=== PATIENT | female | born 1980 | race Two or more races ===

== ENCOUNTER 2025-02-04 08:35 | Emergency (ER) | payer BC, SELFPAY ==
[2025-02-04 08:42] VITALS: BP 123/86; PULSE 97; RESP 18; TEMP 36.7; O2SAT 97; BMI 33.1
--- NOTE | 2025-02-04 08:55 | XR_ITS ---
Examination: Lumbar spine 3 views Technique: AP lateral coned lateral lower lumbar spine 3 views. Date and time: February 04, 2025 0953 hrs. Indications: Lower back pain today no injury. Findings: Satisfactory alignment lumbar vertebral bodies. No fracture. No spondylolisthesis. No significant lumbar disc narrowing. Impression: No lumbar fracture. No significant lumbar disc narrowing.
--- NOTE | 2025-02-04 08:55 | PD.EDLOWEX ---
Lower Extremity Injury RME/HPI General Chief Complaint: Extremity Injury, Lower Stated Complaint: L HIP PAIN RADIATING DOWN LEG Time Seen by Provider: 02/04/25 08:47 Arrival date/time: 02/04/25 08:35 Limitations: no limitations RME / HPI RME / HPI Narrative: 44-year-old female here for back pain that radiates down her left hip. States about a week ago was doing a twisting motion in the shower and felt something pop. Has never had similar episode of this. No loss of bowel or bladder control. No fever. No history of IV drug use. No history of diabetes. Other than incident 1 week ago no spine trauma. Related Data Previous Rx's ?Medication ?Instructions ?Recorded hydrocodone 5 mg-acetaminophen 325 1 tab PO BID PRN pain 7 days #14 02/04/25 mg tablet tabs prednisone 20 mg tablet 40 mg PO QDAY #10 tabs 02/04/25 Allergies Allergy/AdvReac Type Severity Reaction Status Date / Time No Known Allergies Allergy Unverified 02/04/25 08:56 Review of Systems Review of Systems Systems Reviewed: All systems reviewed, normal except as documented Constitutional Constitutional: Denies fever(s) Gastrointestinal Gastrointestinal: Denies abdominal pain Genitourinary Genitourinary: Denies difficulty voiding Musculoskeletal Musculoskeletal: Reports as per HPI ED Exam General Limitations: Present no limitations General appearance: Present alert and in no apparent distress Eye Eye exam: Present normal appearance, PERRL and EOMI Respiratory Respiratory exam: Present normal lung sounds bilaterally Cardiovascular Cardiovascular exam: Present regular rate, normal rhythm and normal heart sounds Abdominal Exam Abdominal exam: Present soft and normal bowel sounds Extremities Exam Extremities exam: Present normal inspection and full ROM Back Exam Back exam: Present full ROM, tenderness (lumbar ttp ) and sciatic notch tenderness (L) Psychiatric Psychiatric exam: Present normal affect and normal mood Skin Skin exam: Present warm, dry, intact and normal color Course Quality Measures none Orders Category Date Time Status XR lumbar spine 2-3V Stat Exams 02/04/25 08:55 Completed HCG Qualitative,Urine Stat Lab 02/04/25 09:15 Completed UA [Urinalysis] Stat Lab 02/04/25 09:15 Completed Dexamethasone Inj [Decadron Inj] Med 02/04/25 08:55 Discontinued 10 mg PO X1 ONE HYDROcodone*/APAP 5/325 [Wolverine 5/325] Med 02/04/25 08:55 Discontinued 1 tab PO X1 ONE HYDROcodone*/APAP 5/325 [Wolverine 5/325] Med 02/04/25 11:19 Discontinued 1 tab PO X1 ONE Ketorolac Inj [Toradol Inj] Med 02/04/25 08:55 Discontinued 30 mg IM X1 ONE Vital Signs Vital signs: Vital Signs Temperature 98.1 F 02/04/25 08:42 Pulse Rate 97 02/04/25 08:42 Respiratory Rate 18 02/04/25 08:42 Blood Pressure 123/86 H 02/04/25 08:42 Pulse Oximetry (%) 97 02/04/25 08:42 Oxygen Delivery Method Room Air 02/04/25 08:42 Extremity Injury, Lower Patient data External records reviewed:: [facility] previous records and None Clinical information provided by:: patient Social determinants that could affect healthcare access:: other (specify) (Works long hours does not make time to go to PCP) Patient has the following chronic illnesses:: None How is presenting disease/condition affected by chronic disease/condition?: no chronic disease Evaluation data The following diagnostics were reviewed and interpreted by me:: lab results and radiology exam(s) Lab and/or radiology exams considered but not ordered:: CT of spine was considered however unlikely to change the course of treatment Interpretation Summary: UA within normal limits x-ray within normal limits other than some mild arthritic changes Medications / Prescriptions Medications or Prescriptions considered but not ordered:: Muscle relaxers are considered however due due to concern of grogginess opted against Medication administrations:: Medication Administration History Discontinued Medications Hydrocodone Bitart/Acetaminophen (Hydrocodone/Apap 5/325 Tablet) 1 tab PO X1 ONE Stop: 02/04/25 08:56 Last Admin: 02/04/25 09:24 Dose: Not Given Documented By: KELL Non-Admin Reason: Patient Refused Hydrocodone Bitart/Acetaminophen (Hydrocodone/Apap 5/325 Tablet) 1 tab PO X1 ONE Stop: 02/04/25 11:20 Last Admin: 02/04/25 11:26 Dose: 1 tab Documented By: KELL Dexamethasone Sodium Phosphate (Dexamethasone Sod Phos Inj 10 Mg/Ml Vial) 10 mg PO X1 ONE Stop: 02/04/25 08:56 Last Admin: 02/04/25 09:23 Dose: 10 mg Documented By: KELL Ketorolac Tromethamine (Ketorolac Inj 60 Mg/2 Ml Vial) 30 mg IM X1 ONE Stop: 02/04/25 08:56 Last Admin: 02/04/25 09:23 Dose: 30 mg Documented By: KELL See above Consultations Consultation(s) initiated? (list below): No Diagnosis Extremity Injury, Lower Differential Diagnosis: ankle sprain and strain, acute internal derangement of knee and other (Sciatica, infection) Most likely diagnosis given after review of the tests above:: New onset sciatica left-sided Admission Indicated Admission indicated?: not indicated Admission Request Was there a request for admission?: No Disposition Plan Disposition Plan: Discharge Discharge Attestation Discharge Attestation: The patient and all family members were given an opportunity to ask questions and understood the discharge instructions. Discharge instructions specifically effects, indications for sooner follow up or return to the emergency department, and the expected course of current diagnosis. Patient condition: Stable Discharge Plan Plan Patient Disposition: HOME (Self Care) Discharge Disposition comment: f/u in 2-3days with pcp Prescriptions/Referrals Prescriptions/Med Rec: New hydrocodone-acetaminophen 5-325 mg tablet 1 tab PO BID MDD 2 PRN (Reason: pain) 7 Days Qty: 14 0RF prednisone 20 mg tablet 40 mg PO QDAY Qty: 10 0RF Taper: Prednisone Taper 20 mg DAILY for 2 Days and 0 Hour 10 mg DAILY for 2 Days and 0 Hour 5 mg DAILY for 7 Days and 0 Hour Referrals: Manju Sherman [employer] [Primary Care Provider] - In 1 week Problem List Clinical Impression: Sciatica Patient/Caregiver Discharge Instructions Education Materials: ED Sciatica Print Language: Bangladeshi Stand Alone Forms: Mary Jo Award Info., Patient Portal Info Letter PA/GREY Supervising Physician PA/GREY Supervising Physician: Dr. Stark
[2025-02-04] MEDS: KETOROLAC INJ 60 MG/2 ML VIAL 30 MG IM (09:23)
[2025-02-04] MEDS: DEXAMETHASONE SOD PHOS INJ 10 MG/ML VIAL PO (09:23)
[2025-02-04 09:24] LABS: Collection Type, Urine Clean Catch
[2025-02-04 09:35] LABS: HCG Qualitative,Urine Negative
[2025-02-04 09:37] LABS: Bacteria,Urine Rare; Bilirubin,Urine Negative (Negative); Blood,Urine Negative (Negative); Clarity,Urine Clear (Clear/Hazy); Color,Urine Lt-Yellow (Lt Yel-Yel); Glucose, Urine Negative (Negative); Ketones,Urine Negative (Negative); Leukocyte Esterase,Urine Negative (Negative); Nitrite,Urine Negative (Negative); PH,Urine 7.0 (5.0-7.0); Protein,Urine Negative (Neg - Trace); RBC,Urine 2 /hpf (0-3); Specific Gravity,Urine 1.017 (1.001-1.035); Squamous Epithelial Cell,Urine 6 /hpf (0-5); Urobilinogen,Urine Negative mg/dL (0.0-1.0); WBC,Urine 1 /hpf (0-5)
[2025-02-04] MEDS: HYDROcodone/APAP 5/325 TABLET 1 TAB PO (11:26)
--- NOTE | 2025-02-07 09:18 | PC.NURSE ---
NORCO 5 WAS RETURNED FOR THIS PATIENT IN ERROR. PT RECEIVED 1 ORDERED DOSE OF NORCO 5, NONE SHOULD HAVE BEEN RETURNED.
== END 2025-02-04 11:34 | disposition home or self-care (01) ==
PROVIDERS: Emergency Provider Physician Assistant; PCP Nurse Practitioner Family
DX: M54.42 Lumbago with sciatica, left side (principal)
CPT/HCPCS: 72100; 81001; 81025; 96372; 99283; J1100; J1885; A9270